=== PATIENT | female | born 1985 | race Caucasian/White ===

== ENCOUNTER 2019-11-17 00:46 | Emergency (ER) | payer SELFPAY ==
[2019-11-17 02:11] LABS: ABSOLUTE BASOPHILS # (AUTO) 0.1 10^3/uL (0.0-0.2); ABSOLUTE EOSINOPHILS # (AUTO) 0.1 10^3/uL (0.0-0.6); ABSOLUTE LYMPHOCYTES (AUTO) 1.7 10^3/uL (0.5-4.7); ABSOLUTE MONOCYTES (AUTO) 0.4 10^3/uL (0.1-1.4); ABSOLUTE NEUT (AUTO) 5.5 10^3/uL (1.7-8.2); BASOPHILS % (AUTO) 0.8 % (0-2); EOSINOPHILS % (AUTO) 1.7 % (0-6); HEMATOCRIT 42.3 % (36.0-47.0); HEMOGLOBIN 14.3 g/dL (12.0-15.5); LYMPHOCYTES % (AUTO) 22.3 % (13-45); MEAN CORPUSCULAR HEMOGLOBIN 28.6 pg (27.0-33.4); MEAN CORPUSCULAR HGB CONC 33.9 g/dL (32.0-36.0); MEAN CORPUSCULAR VOLUME 84 fl (80-97); MONOCYTES % (AUTO) 5.5 % (3-13); PLATELET COUNT 301 10^3/uL (150-450); RED CELL DISTRIBUTION WIDTH 15.4 % (11.5-14.0); SEGMENTED NEUTROPHILS % (AUTO) 69.7 % (42-78); TOTAL CELLS COUNTED % (AUTO) 100 %; WHITE BLOOD COUNT 7.8 10^3/uL (4.0-10.5)
[2019-11-17 02:25] LABS: APPEARANCE,URINE CLOUDY; BILIRUBIN,URINE NEGATIVE (NEGATIVE); COLOR,URINE YELLOW; GLUCOSE, URINE NEGATIVE (NEGATIVE); KETONES,URINE NEGATIVE (NEGATIVE); LEUKOCYTE ESTERASE,URINE TRACE (NEGATIVE); NITRITE,URINE NEGATIVE (NEGATIVE); PROTEIN,URINE 30 mg/dL (NEGATIVE); URINE SPECIFIC GRAVITY 1.038
[2019-11-17 02:28] LABS: ALBUMIN 4.1 g/dL (3.5-5.0); ALKALINE PHOSPHATASE 73 U/L (38-126); ANION GAP 10 (5-19); ASPARTATE AMINO TRANSFERASE 22 U/L (14-36); BILIRUBIN,DIRECT 0.3 mg/dL (0.0-0.4); BILIRUBIN,TOTAL 0.5 mg/dL (0.2-1.3); BLOOD UREA NITROGEN 13 mg/dL (7-20); CALCIUM 9.4 mg/dL (8.4-10.2); CARBON DIOXIDE 22 mmol/L (22-30); CHLORIDE 106 mmol/L (98-107); GLUCOSE 128 mg/dL (75-110); POTASSIUM 4.1 mmol/L (3.6-5.0); TOTAL PROTEIN 6.6 g/dL (6.3-8.2)
--- NOTE | 2019-11-17 06:01 | ER Document Report ---
ED General - General Chief Complaint: Abdominal Pain Stated Complaint: CHEST PAIN Time Seen by Provider: 11/17/19 05:59 - HPI Notes: 34-year-old female presents with abdominal pain. Patient states that around 9:30 PM in the evening she developed right upper quadrant pain, states that she was watching TV. She states that she had not recently had any food. Described as a squeezing sensation, dull. It radiates to her back along her bra line, and occasionally shoots over to the left upper quadrant as well. No nausea, vomiti ng or diarrhea. No fever. She states that she has had this pain before. She is actually been having this pain for the past 8 years, it started after the of her daughter. She notes episodes of pain have been increasing, what used to occur intermittently, then monthly, now is occurring weekly and sometimes even twice a week. Pain often does associate with food, though sometimes will occur at night when she is in bed. No dysuria. No shortness of breath. - Related Data Allergies/Adverse Reactions: No Known Allergies Allergy (Unverified 11/17/19 01:44) Past Medical History - General Information source: Patient - Social History Smoking Status: Current Every Day Smoker Frequency of alcohol use: None Drug Abuse: None Family History: Reviewed & Not Pertinent Patient has homicidal ideation: No Review of Systems - Review of Systems Constitutional: denies: Fever EENT: No symptoms reported Cardiovascular: denies: Chest pain Respiratory: denies: Short of breath Gastrointestinal: Abdominal pain. denies: Diarrhea, Nausea, Constipation Genitourinary: denies: Dysuria Female Genitourinary: No symptoms reported Musculoskeletal: Back pain Skin: No symptoms reported Hematologic/Lymphatic: No symptoms reported Neurological/Psychological: No symptoms reported Physical Exam - Vital signs Vitals: Temp Pulse Resp BP Pulse Ox 98.1 F 89 21 H 156/86 H 99 11/17/19 00:53 11/17/19 00:53 11/17/19 00:53 11/17/19 00:53 11/17/19 00:53 - General General appearance: Appears well In distress: None Notes: Patient sleeping upon entrance into room, awoke easily to voice - HEENT Head: Normocephalic, Atraumatic Eyes: No: Scleral icterus Extraocular movements intact: Yes Pupils: PERRL - Respiratory Breath sounds: Normal - Cardiovascular Rhythm: Regular Heart sounds: Normal auscultation - Abdominal Inspection: Obese Distension: No distension Bowel sounds: Normal Tenderness: Nontender - Extremities General upper extremity: Normal ROM General lower extremity: Normal ROM - Neurological Neuro grossly intact: Yes Cognition: Normal Orientation: AAOx4 - Psychological Associated symptoms: Normal affect - Skin Skin Temperature: Warm Course - Re-evaluation Re-evalutation: 11/17/19 06:18 34-year-old female with intermittent right upper quadrant/epigastric pain ongoing for 8 years, increasing in frequency, last occurred at 9:30 PM. She is well-appearing on exam, afebrile, she is not jaundiced. Abdomen is soft and do not really find any focal areas of tenderness. Heart RRR and lungs are clear. Based on her description I am concerned for likely gallbladder etiology, suspect symptomatic cholelithiasis, biliary dyskinesia, less likely acute cholecystitis. Right upper quadrant ultrasound ordered to assess. I have a low suspicion for cardiac etiology at this time. 11/17/19 08:34 No leukocytosis or left shift to suggest infection. No acute anemia. Electrolytes within normal limits. LFTs, T bili and lipase are within normal limits. Troponin negative. Urine does not suggest UTI. 11/17/19 08:58 Ultrasound images unavailable. I have reviewed the radiology report. Per radiology there is evidence of gallstones, the gallbladder has normal wall thickness and no pericholecystic fluid. No CBD dilation. 11/17/19 09:00 I updated the patient on results. She continues to be pain-free and well- appearing. I discussed with her need to follow-up with a surgeon outpatient, will provide contact information. Return precautions were given, patient stable at time of discharge. - Vital Signs Vital signs: Temp Pulse Resp BP Pulse Ox 98.1 F 89 21 H 156/86 H 99 11/17/19 01:45 11/17/19 00:53 11/17/19 00:53 11/17/19 00:53 11/17/19 00:53 - Laboratory Result Diagrams: 11/17/19 01:54 11/17/19 01:54 Laboratory results interpreted by me: 11/17/19 11/17/19 11/17/19 01:54 01:54 01:56 RDW 15.4 H Creatinine 0.49 L Glucose 128 H Urine Protein 30 H Urine Urobilinogen 2.0 H Ur Leukocyte Esterase TRACE H Urine Ascorbic Acid 40 H - Diagnostic Test Radiology reviewed: Reports reviewed - EKG Interpretation by Me Additional EKG results interpreted by me: 11/17/19 08:41 EKG is interpreted by me. Normal sinus rhythm, rate 87. Narrow QRS, QTC within normal limits. No ST elevation. Discharge - Discharge Clinical Impression: Symptomatic cholelithiasis Condition: Stable Disposition: HOME, SELF-CARE Instructions: Low-Fat Diet ([facility]), Gallbladder Disease ([facility]) Additional Instructions: Please try to adhere to a low-fat diet. Please establish with surgery to discuss outpatient surgery for your gallbladder. Please return to the emergency department for fever, inability to eat or drink, yellowing of skin, severe pain or any other concerning symptoms. Referrals: NIC WATERS MD [ACTIVE STAFF] - Follow up as needed
--- NOTE | 2019-11-17 08:56 | RADIOLOGY REPORT (SQ) ---
EXAM DESCRIPTION: U/S ABDOMEN LIMITED W/O DOP IMAGES COMPLETED DATE/TIME: 11/17/2019 6:42 am REASON FOR STUDY: RUQ pain after eating. eval stones vs acute moriah COMPARISON: None. TECHNIQUE: Dynamic and static grayscale images acquired of the abdomen and recorded on PACS. Additio nal selected color Doppler and spectral images recorded. LIMITATIONS: None. FINDINGS: PANCREAS: No masses. Visualized pancreatic duct normal caliber. LIVER: No masses. Echotexture normal. LIVER VASCULATURE: Normal directional flow of the main portal vein and hepatic veins. GALLBLADDER: Gallstones. Normal wall thickness. No pericholecystic fluid. ULTRASOUND-DETECTED AVERY'S SIGN: Negative. INTRAHEPATIC DUCTS AND COMMON DUCT: CBD and intrahepatic ducts normal caliber. No filling defects. INFERIOR VENA CAVA: Normal flow. AORTA: No aneurysm. RIGHT KIDNEY: Normal size. Normal echogenicity. No solid or suspicious masses. No hydronephrosis. No calcifications. PERITONEAL AND RIGHT PLEURAL SPACE: No ascites or effusions. OTHER: No other significant findings. IMPRESSION: GALLSTONES. NO ACUTE FINDINGS. TECHNICAL DOCUMENTATION: JOB ID: [id number] 2010 [employer]- All Rights Reserved Reading location - IP/workstation name: [email or web address]
[2019-11-17 09:01] VITALS: BP 119/87
--- NOTE | 2019-11-17 10:31 | EKG REPORT ---
SEVERITY:- OTHERWISE NORMAL ECG - SINUS RHYTHM BORDERLINE LEFT AXIS DEVIATION : Confirmed by: Dena Ocasio MD 17-Nov-2019 10:31:29
== END 2019-11-17 09:11 | disposition home or self-care (01) ==
LOC: ER 00:46
DX: K80.20 Calculus of gallbladder without cholecystitis without obstruction (principal); R10.11 Right upper quadrant pain; R10.12 Left upper quadrant pain; M54.9 Dorsalgia, unspecified; R10.13 Epigastric pain; F17.200 Nicotine dependence, unspecified, uncomplicated
CPT/HCPCS: 36415; 76705; 80053; 81001; 83690; 84484; 85025; 93005; 93010; 99285